=== PATIENT | female | born 1990 | race Caucasian/White ===

== ENCOUNTER → 2017-11-07 14:14 | Outpatient (CLI) | payer BC, SELFPAY ==
--- NOTE | 2017-11-07 14:17 | US_ITS ---
US OB transvaginal HISTORY: ITS.REASON: US OB Dates ORDERING PHYSICIAN: Rosa Rowe MD PATIENT AGE: 27 years COMPARISON: None FINDINGS: There is an intrauterine gestational sac present with a mean sac diameter of 5 mm. A yolk sac is also noted. A pole however is not identified. The left ovary is 2.6 x 3 cm . The right ovary is 3 x 1.7 cm. No cul-de-sac fluid. IMPRESSION: There is an intrauterine gestational sac with a small yolk sac but no pole evident at this time which may be due to early for demonstration. Please correlate with hCG. Cannot confirm viability at this time. Suggest follow-up ultrasound
== END ==
PROVIDERS: PCP Family Medicine; Visit Provider Obstetrics & Gynecology
DX: O26.841 Uterine size-date discrepancy, first trimester (principal)
CPT/HCPCS: 76817

== ENCOUNTER → 2017-11-07 15:05 | Outpatient (CLI) | payer BC, SELFPAY ==
[2017-11-07 15:42] LABS: Basophils % 0.2 % (0.1-2.0); Eosinophils # 0.2 K/mm3 (0.0-0.4); Eosinophils % 1.7 % (0.1-12.0); Hematocrit 38.3 % (37.0-47.0); Hemoglobin 13.2 g/dL (12.2-16.2); Lymphocytes # 2.3 K/mm3 (0.7-4.5); Lymphocytes % 26.8 K/mm3 (10-50); Mean Corpuscular HGB Conc 34.6 g/dL (31.8-35.4); Mean Corpuscular Hemoglobin 29.7 pg (27.0-31.2); Mean Corpuscular Volume 85.8 fl (81-99); Monocytes # 0.4 K/mm3 (0.1-1.0); Monocytes % 4.7 % (1.7-9.3); Neutrophils # 5.7 K/mm3 (1.8-7.8); Neutrophils % 66.6 % (37.0-80.0); Platelet Count 362 K/mm3 (142-424); Red Blood Count 4.46 M/mm3 (4.20-5.40); Red Cell Distribution Width 13.4 % (11.5-17.5); White Blood Count 8.5 K/mm3 (4.8-10.8)
[2017-11-10 03:32] LABS: HIV Screen 4th Generation wRfx Non Reactive (Non Reactive); Hepatitis B Surface Antigen Negative (Negative); Hepatitis C Antibody >11.0 s/co ratio (0.0-0.9); Rapid Plasma Reagin Ab Titer Non Reactive (NonRea<1:1)
== END ==
PROVIDERS: PCP Family Medicine; Visit Provider Obstetrics & Gynecology
DX: Z34.90 Encounter for supervision of normal pregnancy, unspecified, unspecified trimester (principal); O98.419 Viral hepatitis complicating pregnancy, unspecified trimester; B17.10 Acute hepatitis C without hepatic coma
CPT/HCPCS: 36415; 85025; 86592; 86703; 86762; 86850; 87340; 87380; G0432

== ENCOUNTER → 2017-11-12 11:20 | Outpatient (CLI) | payer BC, SELFPAY ==
[2017-11-12 13:50] LABS: Alanine Aminotransferase 21 U/L (12-78); Albumin Level 3.6 gm/dL (3.4-5.0); Albumin/Globulin Ratio 1.1 (1.1-1.8); Alkaline Phosphatase 78 U/L (46-116); Anion Gap 14.1 mEq/L (5-15); Aspartate Amino Transferase 15 U/L (15-37); Bilirubin,Total 0.4 mg/dL (0.2-1.0); Blood Urea Nitrogen 6 mg/dL (7-18); Calcium 8.7 mg/dL (8.5-10.1); Carbon Dioxide 26 mmol/L (21.0-32.0); Chloride 101 mmol/L (98-107); Estimated Glomerular Filt Rate 121 ml/min (>60); GFR (African American) 146 ML/MIN (>60); Globulin 3.3 gm/dl (1.3-3.2); Glucose 71 mg/dL (74-106); HCG,Quantitative 15187 mIU/mL; Potassium 4.1 mmoL/L (3.5-5.1); Sodium 137 mmol/L (136-145); Total Protein,Serum 6.9 gm/dL (6.4-8.2)
== END ==
PROVIDERS: PCP Family Medicine; Visit Provider Obstetrics & Gynecology
DX: Z34.90 Encounter for supervision of normal pregnancy, unspecified, unspecified trimester (principal); B18.2 Chronic viral hepatitis C; O98.419 Viral hepatitis complicating pregnancy, unspecified trimester; B17.10 Acute hepatitis C without hepatic coma
CPT/HCPCS: 36415; 80053; 84702; 87522

== ENCOUNTER → 2017-11-20 13:05 | Outpatient (CLI) | payer BC, SELFPAY ==
--- NOTE | 2017-11-20 13:06 | US_ITS ---
US OB transvaginal HISTORY: ITS.REASON: US OB Dates ORDERING PHYSICIAN: Rosa Rowe MD PATIENT AGE: 27 years COMPARISON: 11/07/2017 FINDINGS: An intrauterine gestational sac is present with a pole with a crown-rump length of 0.92cm correlating to gestational age of 7 weeks 0 days. heart tones are present with an FHR of 124 bpm's. Yolk sac is noted. Adnexa are unremarkable IMPRESSION: Live intrauterine gestation at 7 weeks 0 days as described above. Estimated due date by Ultrasound is 07/09/2018
== END ==
PROVIDERS: PCP Family Medicine; Visit Provider Obstetrics & Gynecology
DX: O26.841 Uterine size-date discrepancy, first trimester (principal)
CPT/HCPCS: 76817